=== PATIENT | female | born 1980 | race Caucasian/White ===

== ENCOUNTER → 2022-03-15 | Outpatient (CLI) | payer MEDICAID | LOC: M RAD 14:03 | PROVIDERS: ATTEND Pain Medicine Interventional Pain Medicine | DX: M94.262 Chondromalacia, left knee (principal); M17.12 Unilateral primary osteoarthritis, left knee ==

== ENCOUNTER → 2022-05-23 | Outpatient (CLI) | payer MEDICAID | LOC: M SOG 08:07 | PROVIDERS: ATTEND Orthopaedic Surgery Adult Reconstructive Orthopaedic Surgery | DX: M25.561 Pain in right knee (principal); M25.562 Pain in left knee ==

== ENCOUNTER → 2022-06-18 | Outpatient (CLI) | payer MEDICAID ==
[~2022-06-18] MED LIST: **SFHN** BUPIVACAINE HCL 0.5% 10ML VIAL ONE; **SFHN** LIDOCAINE 1% MDV 20ML VIAL ONE; ISOVUE-300 61% 100ML VIAL ONE; methylPREDNISolone 80MG/ML SUSP 1ML VIAL ONE
== END ==
LOC: M PLAIMG 15:19
PROVIDERS: ATTEND Orthopaedic Surgery Adult Reconstructive Orthopaedic Surgery
DX: M17.0 Bilateral primary osteoarthritis of knee (principal)

== ENCOUNTER → 2023-01-07 | Outpatient (CLI) | payer MEDICAID | LOC: M SOG 07:57 | PROVIDERS: ATTEND Orthopaedic Surgery | DX: M25.562 Pain in left knee (principal); M25.561 Pain in right knee ==